=== PATIENT | female | born 1975 | race Caucasian/White ===

== ENCOUNTER 2022-06-02 22:08 | Emergency (ER) | payer BC ==
[2022-06-02] MEDS ORDERED: Acetaminophen 500 MG TAB ONE (22:39)
[2022-06-02] MEDS ORDERED: hydrALAZINE 25 MG TAB PO SCH (23:00)
== END 2022-06-02 23:13 | disposition home or self-care (01) ==
LOC: NAV ERS 22:08
DX: I10 Essential (primary) hypertension (principal)
CPT/HCPCS: 99283